=== PATIENT | male | born 1985 | race Asian ===

== ENCOUNTER 2017-01-04 18:02 | Emergency (ER) | payer MEDICAID ==
[2017-01-04] MEDS ORDERED: methylPREDNISolone 125 MG* 2 ML VIAL IM ONE (18:09)
[2017-01-04] MEDS ORDERED: diPHENhydraMINE IV* 50 MG/ML 1 ml VIAL (BENADRYL) IM ONE (18:10)
[2017-01-04 18:24] VITALS: BP 131/82
--- NOTE | 2017-01-04 18:52 | UC ---
Erin Bonilla Edward, scribed for Jerardo Flynn MD on 01/04/17 at 1815 . Allergic Reaction HPI - HPI Summary HPI Summary: 31 y/o male presents to [facility] c/o sudden onset allergic reaction starting last night that became worse an hour ago. Pt has red rashes on both of his arms starting last night. This morning pt c/o erythema and edema around his mouth. Pt denies trouble breathing or swallowing. Pt states he had crab and wine last night, which he thinks may have caused the reaction. Information translated by the [facility] scribe. - History of Current Complaint Stated Complaint: ALLERGIC REACTION HIVES Time Seen by Provider: 01/04/17 18:07 Hx Obtained From: Patient Onset/Duration: Sudden Onset, Lasting Hours - Last night, Still Present Character: Swelling, Hives Associated Signs And Symptoms: Positive: Rash - Both arms and around mouth. Negative: Difficulty Breathing - Allergies/Home Medications Allergies/Adverse Reactions: Allergies Allergy/AdvReac Type Severity Reaction Status Date / Time No Known Allergies Allergy Verified 01/04/17 18:19 PMH/Surg Hx/FS Hx/Imm Hx - Additional Past Medical History Additional PMH: Negative: GA Previously Healthy: Yes - Surgical History Surgical History: None - Family History Known Family History: Negative: Cardiac Disease - Social History Occupation: Employed Full-time Lives: With Family - With roommates Alcohol Use: Occasionally Smoking Status (MU): Never Smoked Tobacco Review of Systems Constitutional: Negative Skin: Rash - Erythema and hives on both arms. Erythema and edema around the mouth Eyes: Negative ENT: Negative Respiratory: Negative - No difficulty breathing Cardiovascular: Negative Gastrointestinal: Negative Genitourinary: Negative Motor: Negative Neurovascular: Negative Musculoskeletal: Negative Neurological: Negative Psychological: Negative All Other Systems Reviewed And Are Negative: Yes Physical Exam Triage Information Reviewed: Yes Appearance: Well-Appearing, No Pain Distress Vital Signs: Initial Vital Signs Temp 98.7 F 01/04/17 18:22 Pulse 90 01/04/17 18:22 Resp 16 01/04/17 18:22 BP 131/82 01/04/17 18:22 Pulse Ox 99 01/04/17 18:22 Vital Signs Reviewed: Yes Eye Exam: Normal ENT Exam: Normal Neck: Positive: Supple, Nontender Respiratory: Positive: Lungs clear, Normal breath sounds, No respiratory distress Cardiovascular: Positive: RRR Abdomen Description: Positive: Nontender, Soft Bowel Sounds: Positive: Present Musculoskeletal Exam: Normal Musculoskeletal: Positive: Strength Intact, ROM Intact Neurological Exam: Normal Psychological Exam: Normal Psychological: Positive: Age Appropriate Behavior Skin Exam: Other - Warm, dry and color reflects adequate perfusion. Hives and erythema on his mouth, chest and bilateral arms. Allergic Reaction Course/Dx - Course Course Of Treatment: PAST MEDICATIONS REVIEWED ON VISIT. IMPROVED IN CLINIC. NO AIRWAY INVOLVEMENT. PATIENT WISHES TO GO HOME. TOLD PATIENT TO GO TO ED IF WORSE. - Differential Dx/Diagnosis Provider Diagnoses: GENERALIZED ALLERGIC REACTION Discharge - Discharge Plan Condition: Stable Disposition: HOME Prescriptions: diPHENhydraMINE PO* [Benadryl PO 50 MG CAP*] 50 mg PO Q6H PRN #15 cap PRN Reason: Allergy Symptoms predniSONE TAB* [Deltasone TAB*] 40 mg PO DAILY #8 tab Patient Education Materials: General Allergic Reaction (ED) Referrals: [facility] [Outside] Additional Instructions: FOLLOW UP WITH YOUR DOCTOR. TAKE BENADRYL 50MG EVERY 6 HOURS NEEDED AND TAKE THE PREDNISONE DIRECTED NEEDED. GO TO THE EMERGENCY DEPARTMENT FOR ANY WORSENING OF YOUR CONDITION OR QUESTIONS OR CONCERNS. The documentation as recorded by the Erin mayen Edward accurately reflects the service I personally performed and the decisions made by me, Jerardo Flynn MD.
== END 2017-01-04 19:00 | disposition home or self-care (01) ==
LOC: UCEAST 18:02
DX: T78.40XA Allergy, unspecified, initial encounter (principal)
CPT/HCPCS: 96372; 99202; G0463; J1200; J2930